=== PATIENT | female | born 1930 | race Caucasian/White ===

== ENCOUNTER → 2016-11-13 | Outpatient (CLI) | payer OTHER ==
[~2016-11-13] MED LIST: AMLODIPINE BESYL5 MG PO; B-100 COMPLEX1 EAC1 OR; CALCIUM 600 +1 EAC9 OR; CENTRUM TABLET1 TAB OR; DARVOCET-N 1001 EACH PO; ENALAPRIL MALEA20 MG PO; ESTRACE0.5 MG OR; FISHOIL OR; FOSAMAX 70 MG T70 M1 OR; GEMFIBROZIL 60600 MG PO; HYDROCHLOROTH12.5 MG OR; LIPITOR10 MG OR; PREMARIN0.3 MG PO; VASOTEC20 MG OR; XALATAN2.5 ML OR; ZANTAC 7575 MG OR
== END ==
LOC: RAD 13:13
DX: Z12.31 Encounter for screening mammogram for malignant neoplasm of breast (principal)

== ENCOUNTER → 2016-11-20 | Outpatient (CLI) | payer OTHER | LOC: RAD 10:29 | DX: N63 Unspecified lump in breast (principal); R92.2 Inconclusive mammogram ==

== ENCOUNTER 2017-12-14 10:35 | Emergency (ER) | payer OTHER ==
[~2017-12-14] VITALS: Ht 162.6 cm; Wt 61.2 kg
--- NOTE | ~2017-12-14 | EKG ---
[place] [address] [address] [facility] [place] [address] ELECTROCARDIOGRAM REPORT Name: YAMILA URIOSTEGUI [facility] [id number] Admission: 12/14/17 Attend Phys: Discharge: 12/14/17 Date of : 31 Report #: [id number] THIS REPORT FOR: //name// [facility] ED Test Date: 2017-12-14 Test Time: 11:16:38 Pat Name: YAMILA URIOSTEGUI Department: Room: Gender: F [employer] Manager: Tu VELASQUEZ : 1930 Requested By: Kelly Brewster Order Number: [id number] MD: Kyler Ferrari Measurements Intervals [place] Rate: 91 P: 83 IN: 182 QRS: -30 QRSD: 138 T: 157 QT: 361 QTc: 445 Interpretive Statements Sinus rhythm Left bundle branch block Compared to ECG 11/08/2010 13:43:41 No significant changes Electronically Signed On 12-15-2017 8:05:07 CDT by Kyler Ferrari [email or web address] <ELECTRONICALLY SIGNED> By: Kyler Ferrari MD, [facility] 12/15/17 0805 [id number] Kyler Ferrari MD, FACC /EPI
[2017-12-14 11:45] LABS: ABSOLUTE NEUTROPHILS 6.9 thou/uL (1.4-8.2); BASOPHILS 0.4 % (0.0-2.0); HEMATOCRIT 42.6 % (37.0-47.0); HEMOGLOBIN 14.7 gm/dL (12.0-15.0); LYMPHOCYTES 14.4 % (24.0-44.0); MCHC 34.5 g/dL (28.0-37.0); MCV 89.9 fL (80.0-100.0); MONOCYTES 9.9 % (1.0-8.0); PLATELET COUNT 204 thou/uL (150-400); POLYS 75.3 % (36.0-66.0); RBC 4.74 mil/uL (4.20-5.00); WBC 9.1 thou/uL (4.0-11.0)
[2017-12-14 11:53] LABS: CALCIUM 9.4 mg/dL (8.5-10.1); CREATININE 0.9 mg/dL (0.6-1.0)
[2017-12-14 12:02] LABS: TOTAL BILIRUBIN 0.4 mg/dL (<0.1-1.0); TOTAL PROTEIN 8.2 g/dL (6.4-8.2); TROPONIN-I 0.06 ng/mL (<0.06)
[2017-12-14 12:07] LABS: URINE BILIRUBIN NEGATIVE (Negative); URINE BLOOD 1+ (Negative); URINE CLARITY CLEAR; URINE COLOR YELLOW; URINE GLUCOSE-RANDOM* NEGATIVE (Negative); URINE KETONES 1+ (Negative); URINE PROTEIN (DIPSTICK) 2+ (Negative); URINE SPECIFIC GRAVITY 1.025 (1.005-1.035); URINE UROBILINOGEN 0.2 E.U./dl (0.2-1.0)
[2017-12-14 12:10] LABS: URINE LEUKOCYTES-REFLEX 1+ (Negative); URINE NITRITE-REFLEX POSITIVE (Negative)
[2017-12-14 12:18] LABS: CASTS None Seen /LPF (None Seen); MUCUS >6 Heavy strn/LPF (None Seen); SQUAMOUS 4-10 Moderate /LPF (0-3)
[2017-12-14 12:19] LABS: BACTERIA-REFLEX >30 Many /HPF (None Seen); CRYSTALS None Seen /LPF (None Seen); URINE RBC 3-10 Few /HPF (0-2); URINE WBC-REFLEX >25 Many /HPF (0-5); WBC CLUMPS Many (None Seen)
[2017-12-14] MEDS ORDERED: MACROBID 100 M100 M1 PO (12:30)
[2017-12-14] MEDS ORDERED: PHENERGAN 25 MG25 M1 PO (12:32)
[2017-12-14 13:07] VITALS: BP 153/75
== END 2017-12-14 13:10 | disposition home or self-care (01) ==
LOC: ER 10:35
PROVIDERS: Physician Assistant
DX: N39.0 Urinary tract infection, site not specified (principal); R11.2 Nausea with vomiting, unspecified; E78.5 Hyperlipidemia, unspecified; K21.9 Gastro-esophageal reflux disease without esophagitis; I25.10 Atherosclerotic heart disease of native coronary artery without angina pectoris; Z90.49 Acquired absence of other specified parts of digestive tract; Z90.710 Acquired absence of both cervix and uterus; Z88.8 Allergy status to other drugs, medicaments and biological substances; Z88.5 Allergy status to narcotic agent; Z91.041 Radiographic dye allergy status; Z88.0 Allergy status to penicillin; Z88.7 Allergy status to serum and vaccine; Z88.6 Allergy status to analgesic agent; Z91.018 Allergy to other foods

== ENCOUNTER → 2018-01-14 | Outpatient (CLI) | payer OTHER ==
[~2018-01-14] MED LIST changes: +MACROBID 100 M100 M1 PO; +PHENERGAN 25 MG25 M1 PO
== END ==
LOC: LAB 05:49
PROVIDERS: Neuromusculoskeletal Medicine & OMM
DX: J32.0 Chronic maxillary sinusitis (principal); J32.2 Chronic ethmoidal sinusitis; R07.9 Chest pain, unspecified; I25.10 Atherosclerotic heart disease of native coronary artery without angina pectoris; I70.0 Atherosclerosis of aorta; I89.8 Other specified noninfective disorders of lymphatic vessels and lymph nodes

== ENCOUNTER → 2018-05-18 | Outpatient (CLI) | payer OTHER ==
[~2018-05-18] MED LIST changes: +ASPIR 8181 M1 PO; +LISINOPRIL20 MG PO; +NAPROSYN500 MG PO; +SINGULAIR 10 MG10 M1 PO; +SYNTHROID50 MCG PO; +ZOCOR20 MG PO
== END ==
LOC: MRI 10:04
DX: M47.812 Spondylosis without myelopathy or radiculopathy, cervical region (principal); M50.223 Other cervical disc displacement at C6-C7 level; M25.78 Osteophyte, vertebrae; M43.16 Spondylolisthesis, lumbar region

== ENCOUNTER → 2018-05-20 | Outpatient (CLI) | payer OTHER ==
[~2018-05-20] VITALS: Ht 162.6 cm; Wt 58.5 kg
--- NOTE | ~2018-05-20 | HPC ---
[facility] [place] [place] [address] PAIN MANAGEMENT CONSULTATION Name: YAMILA URIOSTEGUI [facility] [id number] Admission: 05/20/18 Attend Phys: Jn Bernardo DO Discharge: Date of : 31 Report #: [id number] THIS REPORT FOR: //name// CC: Jn Lynn MD DATE OF SERVICE: 05/20/2018 REFERRING PHYSICIAN: Andrew Lynn MD. CHIEF COMPLAINT: Neck pain, bilateral head pain. HISTORY OF PRESENT ILLNESS: As you know, the patient is an 87-year-old female who reports acute onset of neck pain and head pain that began after a fall she sustained in either 07/2017 or 08/2017. She indicates that she was walking her dog when she slipped and fell hitting her head on the wall and baseboard. This led to increasing neck pain. She states she did not lose consciousness and was aware of the fall when it occurred. She states she was slowly improving with this pain, but has now noted worsening of symptoms overall. She indicates her pain is located in the upper cervical region radiating over the head and typical third occipital distribution. She indicates pain is exacerbated with weather changes, improves with warm conditions. She did have a rotator cuff surgery in 03/2017, which she does attribute to some of the right shoulder pain too. She underwent imaging of the cervical spine, which showed changes significant enough that the patient was then referred to our clinic. There was degenerative and reactive changes in the C2 level, but does not appear to be a fracture. Due to the findings of the imaging study and the lack of improvement with conservative treatment, the patient was sent to our clinic. The patient indicates pain is continuous with intermittent brief and momentary exacerbations. She states the pain is shooting, aching, throbbing, pounding and stabbing when describing symptoms. Places the current pain score 5/10, daily average of 5/10, worst pain has been is 5/10. The patient states pain is exacerbated with weather changes and turning her head, improves with pain medications. She has been referred to our service to discuss potential treatment options. PAST MEDICAL HISTORY: 1. Rheumatic fever. 2. Bleeding tendencies. 3. Hypertension. 4. Coronary artery disease. 5. Degenerative joint disease. 6. Osteoarthritis. 7. Dyslipidemia. [address] [address] PAIN MANAGEMENT CONSULTATION Name: YAMILA URIOSTEGUI Room #: REG [facility] Concetta#: [id number] Admission: 05/20/18 Attend Phys: Jn Bernardo DO Discharge: Date of : 31 Report #: [id number] 8. Hypothyroidism. 9. Postmenopausal symptoms. PAST SURGICAL HISTORY: 1. Hysterectomy. 2. Percutaneous coronary artery stenting. SOCIAL HISTORY: The patient denies tobacco, IV or illicit drug use. She admits to 4 alcoholic beverages per week. 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 She is not receiving workmen's compensation or is trying to obtain disability benefits. She is unaccompanied at today's visit. REVIEW OF SYSTEMS: Positive for headaches, wearing corrective eyewear, cataracts, chronic sinus problems with rhinitis, nocturia, incontinence and dribbling to urine, lightheadedness, dizziness, head injury, thyroid disease, bleeding and bruising tendencies, coronary artery disease status post stenting. All other review of systems negative per 12-point review of systems other than those listed in history of present illness. Pain impact score 40/70 indicating moderate interference of daily activities secondary to pain. ALLERGIES: SULFA, DARVON, MEPERIDINE. CURRENT MEDICATIONS: Montelukast sodium 10 mg once a day, lisinopril 20 mg per day, aspirin 81 mg per day, simvastatin 20 mg per day, levothyroxine 50 mcg per day, ranitidine 75 mg p.o. at bedtime, omega-3 fish oil 1 tab per day, vitamin B complex 1 tab per day, multivitamin 1 tab per day, calcium carbonate/vitamin D3 600/400 once a day, estradiol 0.5 mg once a day. IMAGING: MRI cervical spine obtained on 05/18/2018 shows hyperintense signal consistent with reactive changes at the C2 level. This identified on the CT of facial bones of 01/14/2018. There is no displacement identified. No evidence of compression or subluxation. Bone marrow signal intensity otherwise normal except for the reactive changes identified at C1 and C2. There is severe multilevel disk desiccation noted at C4-C5, C5-C6, C6-C7; moderate to severe disk desiccation throughout the rest of the cervical spine. There is no central canal stenosis or neural foraminal stenosis at C2-C3, broad-based posterior disk osteophyte complex effacing ventral thecal sac, [id number] right and moderate left neural foraminal stenosis at C3-C4; broad-based posterior disk complex mildly effacing ventral thecal sac at C4-C5; severe bilateral neural foraminal stenosis due to uncovertebral and facet hypertrophyC5-C6; broad-based disk bulge with osteophyte complex moderately effacing ventral thecal sac resulting mild to moderate thecal sac stenosis, [id number]-[id number] right and severe left neural foraminal stenosis. C6-C7, mild bilateral neural foraminal stenosis. C7-T1 unremarkable. [address] [address] PAIN MANAGEMENT CONSULTATION Name: YAMILA URIOSTEGUI Room #: [facility]#: [id number] Admission: 05/20/18 Attend Phys: Jn Bernardo DO Discharge: Date of : 31 Report #: [id number] PQRS: The patient has osteoarthritis of the neck, bilateral hands, hips and knees. No rheumatoid arthritis. She is placing a pain score of 5/10. She is not a fall risk and has not had a fall in last 3 months. She is not on any blood thinners. She is treated for hypertension. She is not on opioids. She has a low opioid addiction potential. Her functional assessment pain impact tool indicates 40/70, moderate. PHYSICAL EXAMINATION: VITAL SIGNS: Blood pressure 154/51, pulse 60, respiratory rate 16 and unlabored. The patient is 96% on room air. Height 5 feet 4 inches tall, weight 129 pounds, BMI calculated 22.1. GENERAL: Well-developed, well-nourished, well-hydrated 87-year-old female, appearing stated age. She is placing current pain score at 5/10. HEENT: Normocephalic, atraumatic. Pupils equal, round, reactive to light. Extraocular muscles are intact. Sclerae nonicteric without injection. NEUROLOGIC: Cranial nerves 2-12 grossly intact. Speech is fluent. The patient deemed a good historian. LUNGS: Clear. No wheeze, rhonchi or rales. CARDIOVASCULAR: Regular. No appreciable gallop, no rub. ABDOMEN: Soft, nontender, nondistended, normoactive bowel sounds. EXTREMITIES: Show no clubbing, no cyanosis, no edema. MUSCULOSKELETAL: Upper extremity strength appears symmetrical 5/5. There is slight giveaway strength noted with biceps flexion and triceps with extension on the right when compared to left. Pain is elicited with active and passive range of motion of the right shoulder. There are surgical scars noted. There is palpatory tenderness over the paraspinal musculature of cervical spine. No spinous process tenderness. Cervical provocation testing is met with increasing pain with rotation, lateral flexion and extension. There is loss of typical cervical lordotic curvature. Spurling's test is essentially negative. There is noted crepitus with rotation of the cervical spine and moderate restriction of motion. ASSESSMENT: 1. Cervical radiculopathy. 2. Cervical stenosis. 3. Neural foraminal stenosis of the cervical spine. 4. Uncovertebral facet hypertrophy of the cervical spine. 5. Facet arthropathy of the cervical spine. 6. Chronic intractable pain. PLAN: 1. Based on today's physical exam and history the patient has provided, the description that patient uses in regards to pain as well as the location of symptoms and the distribution of her symptoms and intensity of pain, likely source of the patient's symptoms is cervical radiculopathy[place] [address] PAIN MANAGEMENT CONSULTATION Name: YAMILA URIOSTEGUI Room #: REG [facility] Concetta#: [id number] Admission: 05/20/18 Attend Phys: Jn Bernardo DO Discharge: Date of : 31 Report #: [id number] suffering from fairly significant arthritic changes that show reactive changes of the C1-C2 level which is fairly atypical in individuals of her age, but does correlate with the fall that she sustained. Interestingly, it remains irritated even nearly a year status post fall. There does not appear to be any compression fractures, subluxations or concerns of fractures in the area, though this is a potential source of the patient's ongoing symptoms, specifically in the upper cervical region. The rest of the cervical spine shows typical changes noted on 87-year-old thin females. We discussed with the patient treatment options for this suspected cervical radiculopathy today. We also discussed treatment options for her ongoing neck pain. The following was discussed with the patient today. We discussed physical therapy stretching exercises and traction techniques. This would be quite beneficial in assisting in facet arthropathy pain both from the facet joints themselves and the uncovertebral joints in the cervical region. We discussed medication management adding in longstanding and consistent nonsteroidal anti-inflammatory in conjunction with possible low dose opioid for pain control. We discussed the addition of neuropathic pain medications for the cervical radicular symptoms for which the patient was referred to our service. We discussed cervical epidural injections under fluoroscopic guidance to address cervical radicular symptoms. We discussed having the patient see another physician in the form of Interventional Radiology to undergo facet joint injections and possible radiofrequency lesioning of the cervical medial branch nerves to address facet arthropathy pain in the cervical spine. We also discussed surgical options. After reviewing the risks and benefits of all the proposed treatment options, the patient chose to begin with cervical epidural injection. The patient was advised that third libertarian payer restrictions require that authorization be obtained before she could undergo first in the series of cervical epidural injections. We will begin the authorization process immediately, have the patient return to undergo this injection once we have achieved authorization. Authorization could take anywhere from 4-7 working days. We will begin this process immediately and contact the patient once we have the authorization for her to undergo the first in the series of cervical injections. 2. The patient will be started on naproxen sodium 500 mg dose 1 tab p.o. t.i.d. with meals. She is to discontinue all other nonsteroidal anti-inflammatories in preference to the naproxen. She is to watch for side effects of dyspepsia, worsening of blood pressure and lower extremity edema. If she notes any side effects, she is to discontinue immediately and call for further instructions. She was given #90 tablets with 2 refills, 3 months' worth of medication assuming she is gaining benefit with its use. 3. We will see the patient back in followup visit once we have achieved [facility] [address] [place] [address] PAIN MANAGEMENT CONSULTATION Name: YAMILA URIOSTEGUI Neo Room #: REG [facility].#: [id number] Admission: 05/20/18 Attend Phys: Jn Bernardo DO Discharge: Date of : 31 Report #: [id number] authorization for her to undergo first in a series of cervical epidural injections under fluoroscopic guidance. 4. We wish to thank Dr. Lynn for the referral of the patient to this clinic. We will keep you apprised of her response to treatment as we address her cervical radicular symptoms and ongoing cervicalgia. Again, we wish to thank you for the opportunity to see the patient in consultation. <ELECTRONICALLY SIGNED> By: Jn Bernardo DO 05/22/18 0734 [id number] [id number] Jn Bernardo DO /nt
[2018-05-20 12:49] VITALS: BP 154/51
== END ==
LOC: PAIN 11:20
DX: M54.12 Radiculopathy, cervical region (principal); M48.02 Spinal stenosis, cervical region; M12.88 Other specific arthropathies, not elsewhere classified, other specified site; G89.4 Chronic pain syndrome; Z79.899 Other long term (current) drug therapy

== ENCOUNTER → 2018-05-27 | Outpatient (CLI) | payer OTHER ==
[~2018-05-27] VITALS: Ht 162.6 cm; Wt 57.2 kg
--- NOTE | ~2018-05-27 | HPC ---
[facility] [place] [address] PAIN MANAGEMENT CONSULTATION Name: YAMILA URIOSTEGUI [facility]: [facility] [id number] Admission: 05/27/18 Attend Phys: Jn Bernardo DO Discharge: Date of : 31 Report #: [id number] THIS REPORT FOR: //name// CC: Jn Lynn MD DATE OF SERVICE: 05/27/2018 REFERRING PHYSICIAN: Andrew Lynn MD. CHIEF COMPLAINT: Neck pain and bilateral head pain. HISTORY OF PRESENT ILLNESS: As you know, the patient is an 87-year-old female who returns today in followup visit to undergo cervical epidural injection under fluoroscopic guidance to address cervical radiculopathy secondary to severe cervical spinal stenosis. The patient indicates that the naproxen may have exacerbated some of her gastroesophageal reflux issues. Apparently, she discontinued her ranitidine when she started the naproxen. I believe this was a mistake. The patient indicates that she was advised by our services to discontinue this medication, but that was not the case. We recommend discontinuation of the naproxen at this point and go back on her Zantac. We will trial the epidural injection for which we have approval today. She reports pain today at level of 4/10. She has returned today in followup visit to undergo cervical epidural injection. ALLERGIES: SULFA, DARVON, MEPERIDINE. CURRENT MEDICATIONS: Montelukast sodium, lisinopril, aspirin, simvastatin, levothyroxine, omega-3 fish oil, vitamin B complex, multivitamin, calcium carbonate, estradiol and naproxen. SOCIAL HISTORY: The patient denies tobacco, IV or illicit drug use. Admits to 4 alcoholic beverages per week. She is a retired artist, retiring about 2 years ago, unaccompanied today. IMAGING: No new imaging available. PQRS: The patient has osteoarthritis in the neck, bilateral hands, hips and knees. No rheumatoid arthritis. She is placing pain today at 4/10. She is not a fall risk, has not had a fall in the last 3 months. She is not on blood thinners. She is treated for hypertension. She is not on opioids. She has a low opioid addiction potential. Her pain impact score 40/70, moderate interference of daily activities secondary to pain. PHYSICAL EXAMINATION: [facility] [address] [place] [address] PAIN MANAGEMENT CONSULTATION Name: YAMILA URIOSTEGUI Room #: REG [facility] Concetta#: [id number] Admission: 05/27/18 Attend Phys: Jn Bernardo DO Discharge: Date of : 31 Report #: [id number] VITAL SIGNS: Blood pressure 170/65, pulse 83, respiratory rate 18 and unlabored. The patient is 93% on room air. Height 5 feet 4 inches tall, weight 126.2 pounds, BMI calculated 21.7. GENERAL: Well-developed, well-nourished, well-hydrated 87-year-old female, appearing stated age. Pain is rated today at 4/10. HEENT: Normocephalic, atraumatic. Pupils equal, round, reactive to light. EXTREMITIES: Show no clubbing, no cyanosis, no edema. MUSCULOSKELETAL: Palpatory tenderness over the paraspinal musculature of cervical spine. No spinous process tenderness. Cervical provocation testing met with increasing pain noted mainly with rotation, lateral flexion and mildly with extension. Loss of lordotic curvature is noted. Spurling's test is essentially negative. There is noted crepitus with movement of the cervical region. ASSESSMENT: 1. Cervical radiculopathy. 2. Cervical spinal stenosis. 3. Neural foraminal stenosis of the cervical spine. 4. Uncovertebral facet hypertrophy of the cervical spine. 5. Facet arthropathy of cervical spine. 6. Chronic intractable pain. PLAN: 1. The patient has returned today in followup visit to undergo cervical epidural injection under fluoroscopic guidance. We have achieved authorization for the patient to undergo the procedure and she returns to undergo that procedure today. She has been advised of the risks and benefits of the procedure, states understood and wished to proceed. She was advised these risks including but are not necessarily limited to bleeding, bruising, infection, worsening pain, no relief of pain, and also risk of temporary or permanent muscle weakness, temporary or permanent nerve damage, possible paralysis and . The patient states understood and wished to proceed. 2. The patient was advised to discontinue the use and naproxen at this time. It does appear that she has exacerbated her typical gastroesophageal reflux disease. We have corrected her medications to reinitiate the ranitidine that she has discontinued and stop the naproxen. She did not notice much benefit with the naproxen and I recommend discontinuation due to the potential side effects. 3. We will see the patient back in followup visit in approximately one month. At that time, review the efficacy of today's cervical epidural injection and determine if next in the series might be warranted. PROCEDURE NOTE DESCRIPTION OF PROCEDURE: C7-T1 cervical epidural steroid injection under fluoroscopic guidance. [address] [address] PAIN MANAGEMENT CONSULTATION Name: YAMILA URIOSTEGUI Room #: REG [facility]#: [id number] Admission: 05/27/18 Attend Phys: Jn Bernardo DO Discharge: Date of : 31 Report #: [id number] This is the first procedure of the first series that the patient is undergoing. After obtaining written consent, the patient was taken back to the fluoroscopy suite and placed in a prone position with separate pillows under chest and forehead to decrease cervical lordosis. The skin overlying the cervical area was prepped and draped in an aseptic fashion. The C7-T1 vertebral interspace was identified by AP fluoroscopy. The skin and subcutaneous tissue overlying the target site of injection was anesthetized using 3 mL of 1% lidocaine. A 20-guage 3-1/2 inch Tuohy needle was advanced under fluoroscopic guidance toward the epidural space using a midline approach. The epidural space was identified using a loss of resistance to air technique. After negative aspiration for heme or cerebrospinal fluid, a total of 0.4 mL of Omnipaque was injected. A cervical epidurogram was confirmed using AP and oblique fluoroscopy. After negative aspiration for heme or cerebrospinal fluid, 4 mL of a solution containing 2 mL 40 mg per mL 80 mg total triamcinolone and 2 mL of lidocaine 1% was injected slowly in increments. Contrast spread was noted from posterior epidural space. The needle was then retracted approximately custodial and the needle track was flushed with 1 mL of 1% lidocaine. There were no apparent new sensory deficits in the upper extremities present following the procedure. A sterile bandage was placed over the injection site. The heart rate, pulse oximetry and blood pressure were continuously monitored after the procedure. There were no apparent complications. The patient tolerated the procedure well and was carefully escorted in the recovery room in stable condition. After meeting discharge criteria, the patient was discharged home. By: [id number] Jn Bernardo DO /nt
[2018-05-27 09:50] VITALS: BP 170/65
== END | disposition home or self-care (01) ==
LOC: PAIN 07:02
DX: M54.12 Radiculopathy, cervical region (principal); M48.02 Spinal stenosis, cervical region; M99.71 Connective tissue and disc stenosis of intervertebral foramina of cervical region; G89.29 Other chronic pain; K21.9 Gastro-esophageal reflux disease without esophagitis; M19.042 Primary osteoarthritis, left hand; M19.041 Primary osteoarthritis, right hand; M16.0 Bilateral primary osteoarthritis of hip; M17.0 Bilateral primary osteoarthritis of knee; I10 Essential (primary) hypertension; Z88.2 Allergy status to sulfonamides; Z88.8 Allergy status to other drugs, medicaments and biological substances; Z79.899 Other long term (current) drug therapy; Z79.82 Long term (current) use of aspirin

== ENCOUNTER → 2018-06-23 | Outpatient (CLI) | payer OTHER ==
[~2018-06-23] VITALS: Ht 162.6 cm; Wt 56.2 kg
[~2018-06-23] MED LIST changes: +DICLOFENAC POTA50 MG PO
--- NOTE | ~2018-06-23 | HPC ---
[facility] [address] [place] [address] PAIN MANAGEMENT CONSULTATION Name: YAMILA URIOSTEGUI [id number] Admission: 06/23/18 Attend Phys: Jn Bernardo DO Discharge: Date of : 32 Report #: [id number] THIS REPORT FOR: //name// CC: Jn Lynn MD DATE OF SERVICE: 06/23/2018 REFERRING PHYSICIAN: Andrew Lynn MD CHIEF COMPLAINT: Neck pain, bilateral hip pain. HISTORY OF PRESENT ILLNESS: As you know, the patient is a very pleasant 88-year-old female who returns today in followup visit, having undergone cervical epidural injection under fluoroscopic guidance at her last visit. She is reporting pain today about 5/10, but has reported near 100% improvement in overall symptoms with her pain since our injection. She states she "slept wrong last night and this exacerbated her symptoms." She returns today in followup visit indicating that she is having some constipation issues with naproxen sodium 500 mg twice a day and wishes to make changes in her anti-inflammatory therapy. Overall, the patient states she is doing very well. She wishes to determine if changes in medication therapy can control the final bit of pain that is reported today. She returned specifically for adjustments in medication management. She wishes to delay the next in a series of epidural injections. ALLERGIES: SULFA, DARVON, MEPERIDINE. CURRENT MEDICATIONS: Montelukast sodium, lisinopril, aspirin, simvastatin, levothyroxine, omega-3 fish oil, vitamin B complex, multivitamin, calcium carbonate, estradiol and naproxen. SOCIAL HISTORY: The patient denies tobacco, IV or illicit drug use. Admits to 4 alcoholic beverages per week. She is a retired artist, retiring about 2 years ago, unaccompanied today. IMAGING: No new imaging available. PQRS: The patient has osteoarthritic changes of the neck, bilateral hands, hips and knees. No rheumatoid arthritis. She is placing pain today at around 5/10, not a fall risk, has not had a fall in the last 3 months. She is not on blood thinners, but is treated for hypertension. She is not on opioid. She has a low opioid addiction potential. She is placing pain impact at 40/70, moderate interference of daily activities secondary to pain. PHYSICAL EXAMINATION: [facility] [address] [place] [address] PAIN MANAGEMENT CONSULTATION Name: YAMILA URIOSTEGUI Room #: REG [facility] Concetta#: [id number] Admission: 06/23/18 Attend Phys: Jn Bernardo DO Discharge: Date of : 31 Report #: [id number] VITAL SIGNS: Blood pressure 178/63, pulse 64, respiratory rate 16 and unlabored, the patient is 93% on room air, height 5 feet 4 inches tall, weight 123.8 pounds, BMI calculated 21.2. GENERAL: Well-developed, well-nourished, well-hydrated, thin 88-year-old female, appears stated age, placing current pain score around 5/10. HEENT: Normocephalic, atraumatic. Pupils equal, round, reactive to light. EXTREMITIES: Show no clubbing, no cyanosis, no edema. MUSCULOSKELETAL: There is some remaining palpatory tenderness over the cervical spine, no spinous process tenderness. Cervical provocation testing is met with mild increase in pain, decrease rotational and lateral flexion capabilities due to arthritic changes. There is mild loss of lordotic curvature noted. Spurling's test is negative. ASSESSMENT: 1. Chronic cervical radiculopathy. 2. Cervical spinal stenosis. 3. Neural foraminal stenosis of the cervical spine. 4. Uncovertebral hypertrophy of the cervical spine. 5. Facet arthropathy of the cervical spine. 6. Chronic intractable pain. PLAN: 1. The patient returns today in followup visit having noted near 100% improvement in overall symptoms with the cervical epidural injection. She states she has had a return of symptoms starting yesterday evening. No inciting injury or trauma. She is now placing pain score 5/10. She believes she "may have slept wrong on her neck." We discussed with the patient the opportunity of either undergoing the next in the series of cervical epidural injections. We are making changes in medication management to address symptoms. After discussing the potential risks and benefits, she chose to make adjustments in medication therapy at this time. 2. The patient indicates that the naproxen started at last visit was causing severe constipation. This would be an unusual side effect of naproxen, but I cannot rule this out as a possibility. I will discontinue this medication. We will rotate over to diclofenac potassium 50 mg dose 1 tab p.o. t.i.d. I have given the patient #90 tablets, 2 refills. The patient was advised to watch for side effects with medication including dyspepsia, worsening blood pressure, lower extremity edema, also for this unusual constipation issues she received with naproxen. She was provided the prescription today. 3. We will see the patient back in followup visit on an as needed basis. We are hopeful that the changes in medication therapy will control the residual pain she has had present and delaying the need for the next in the series of cervical epidural injections. We will obviously see her back on an as needed basis if necessary. 4. I have advised the patient if she is having difficulty with the diclofenac, she can contact our clinic. We will then rotate the treatment to ibuprofen [address] [facility] [address] [place] [address] PAIN MANAGEMENT CONSULTATION Name: YAMILA URIOSTEGUI Room #: REG [facility].#: [id number] Admission: 06/23/18 Attend Phys: Jn Bernardo DO Discharge: Date of : 31 Report #: [id number] [address] t[address]i.d. in place of the diclofenac assuming she is having difficulty we can do this via telephone. 5. We will see the patient back in followup visit on an as needed basis. <ELECTRONICALLY SIGNED> By: Jn Bernardo DO 06/30/18 [id number] Jn Bernardo DO /nt
[2018-06-23 10:11] VITALS: BP 178/63
== END ==
LOC: PAIN 08:45
DX: M54.12 Radiculopathy, cervical region (principal); G89.4 Chronic pain syndrome; M48.02 Spinal stenosis, cervical region; M46.92 Unspecified inflammatory spondylopathy, cervical region; M89.38 Hypertrophy of bone, other site

== ENCOUNTER → 2018-07-03 | Outpatient (CLI) | payer OTHER | LOC: RAD 12:00 | DX: N64.52 Nipple discharge (principal); R92.8 Other abnormal and inconclusive findings on diagnostic imaging of breast ==

== ENCOUNTER → 2019-03-04 | Outpatient (CLI) | payer OTHER | LOC: ULTRA 04:22 | DX: N60.42 Mammary duct ectasia of left breast (principal) ==

== ENCOUNTER → 2019-08-31 | Outpatient (CLI) | payer OTHER | LOC: RAD 08-24 08:53 | DX: Z12.31 Encounter for screening mammogram for malignant neoplasm of breast (principal); Z96.89 Presence of other specified functional implants ==

== ENCOUNTER → 2019-10-05 | Outpatient (CLI) | payer OTHER | LOC: SJCVC 16:13 | DX: I25.10 Atherosclerotic heart disease of native coronary artery without angina pectoris (principal); I10 Essential (primary) hypertension; E78.00 Pure hypercholesterolemia, unspecified; R94.31 Abnormal electrocardiogram [ECG] [EKG]; I44.7 Left bundle-branch block, unspecified; E78.5 Hyperlipidemia, unspecified; Z90.49 Acquired absence of other specified parts of digestive tract; Z79.82 Long term (current) use of aspirin; Z79.899 Other long term (current) drug therapy ==